=== PATIENT | female | born 1985 | race Caucasian/White ===

== ENCOUNTER 2017-08-30 00:26 | Emergency (ER) | payer OTHER ==
--- NOTE | 2017-08-30 00:31 | PDOC ---
History of Present Illness - General Chief Complaint: Pain Stated Complaint: OBJECT IN FOOT X 4 WEEKS, CANT SLEEP Time Seen by Provider: 08/30/17 00:30 History Source: Patient Exam Limitations: No Limitations - History of Present Illness Initial Comments: 08/30/17 00:36 This is a 22-year-old female comes in with 2 platelet complaints. Patient is complaining of something in her foot as well as difficulty sleeping. Patient is otherwise healthy and denies any other complaints. Patient said she has had these complaints times about 2 months. Patient has not seen anybody for the complaints or taken anything for them. PAST MEDICAL HISTORY: no significant history PAST SURGICAL HISTORY: no significant history FAMILY HISTORY: no pertinant history SOCIAL HISTORY: Pt lives with family and is employed. MEDICATIONS: reviewed ALLERGIES: As per nursing notes Review of Systems General: No fevers or chills, no weakness, no weight loss , difficulty sleeping HEENT: No change in vision. No sore throat,. No ear pain CardioVascular: No chest pain or shortness of breath Respiratory:No cough, or wheezing. Gastrointestinal: no nausea, vomitting, diarrhea or constipation, No rectal bleeding Genitourinary: No dysuria, hematuria, or frequency Musculoskeletal: No joint or muscle pain or swelling Neurologic: No headache, vertigo, dizziness or loss of consciousness Psychiatric: nor depression Skin: No rashes or easy bruising, foreign body in foot Endocrine: no increased thirst or abnormal weight change Allergic: no skin or latex allergy All other systems reviewed and normal GENERAL: The patient is awake, alert, and fully oriented, in no acute distress. HEAD: Normal with no signs of trauma. EYES: Pupils equal, round and reactive to light, extraocular movements intact, sclera anicteric, conjunctiva clear. EXTREMITIES: Normal range of motion, no edema., Right foot there is a plantars wart in the area where patient was complaining of a foreign body. NEUROLOGICAL: Normal speech, normal gait. grossly intact PSYCH: Normal mood, normal affect. SKIN: Warm, Dry, normal turgor, no rashes or lesions noted. Assessment and plan: This is a 22-year-old female with complaints of difficulty sleeping and no foreign body in her foot. On exam patient has a plantar wart on the bottom of her foot. Patient was told to take Benadryl when she has difficulty sleeping and follow-up with her doctor. Patient discharged home Past History - Past Medical History Allergies/Adverse Reactions: Allergies Allergy/AdvReac Type Severity Reaction Status Date / Time No Known Allergies Allergy Verified 08/30/17 00:36 Home Medications: Ambulatory Orders NK [No Known Home Medication] 08/30/17 *DC/Admit/Observation/Transfer Diagnosis at time of Disposition: Plantar wart, right foot - Discharge Dispostion Disposition: HOME - Referrals - Patient Instructions Additional Instructions: The area on your foot is a plantars wart. The treatment for his to see a horseradish grinder and have it removed by the horseradish grinder. For your difficulty sleeping take 2 Benadryl when you're having a hard time sleeping and that should help Return to the emergency department immediately with ANY new, persistent or worsening symptoms. Continue any medications as previously prescribed by your physician. You should follow up with your primary doctor as soon as possible regarding today's emergency department visit. . Please make sure your doctor reviews the results of your emergency evaluation. Thank you for coming to the Emergency Department today for your care. It was a pleasure to see you today. Please note that your evaluation is INCOMPLETE until you follow-up with your doctor. - Post Discharge Activity
[2017-08-30 00:39] VITALS: BP 134/65; PULSE 80; TEMP 98.5; BMI 26.6
== END 2017-08-30 00:56 | disposition home or self-care (01) ==
LOC: FER 00:26 → EDBD 00:26 → FER 00:56
DX: B07.0 Plantar wart (principal)
CPT/HCPCS: 99281-25